=== PATIENT | female | born 1970 | race American Indian/Alaskan Native ===

== ENCOUNTER 2024-07-14 09:49 | Outpatient (REF) | payer MEDICAID, SELFPAY ==
--- NOTE | ~2024-07-14 | XR_ITS ---
EXAMINATION: XR KNEE RIGHT 3 VIEWS XR KNEE LEFT 3 VIEWS CLINICAL INFORMATION: Pain in right knee M25.561. M25.562 - Pain in left knee COMPARISON: None TECHNIQUE: AP, lateral and sunrise views of the bilateral knees, 6 images. FINDINGS: Right knee: Mild to moderate tricompartment arthrosis with medial compartment joint space narrowing, and osteophytosis predominantly involving the patellofemoral compartment. No acute fracture. Moderate superior and inferior patellar enthesopathic changes. Alignment is anatomic. No significant effusion or soft tissue swelling. Left knee: Mild to moderate tricompartment arthrosis with medial compartment joint space narrowing, and osteophytosis predominantly involving the patellofemoral compartment. No acute fracture. Moderate superior and inferior patellar enthesopathic changes. Alignment is anatomic. No significant effusion or soft tissue swelling. XR/XR knee LT 3V IMPRESSION: Mild to moderate tricompartment arthrosis of the bilateral knees. Electronically signed by: Genesis Hi DO 08/26/2024 02:14 PM PHUONG LERMA
--- NOTE | ~2024-07-14 | XR_ITS ---
EXAMINATION: XR KNEE RIGHT 3 VIEWS XR KNEE LEFT 3 VIEWS CLINICAL INFORMATION: Pain in right knee M25.561. M25.562 - Pain in left knee COMPARISON: None TECHNIQUE: AP, lateral and sunrise views of the bilateral knees, 6 images. FINDINGS: Right knee: Mild to moderate tricompartment arthrosis with medial compartment joint space narrowing, and osteophytosis predominantly involving the patellofemoral compartment. No acute fracture. Moderate superior and inferior patellar enthesopathic changes. Alignment is anatomic. No significant effusion or soft tissue swelling. Left knee: Mild to moderate tricompartment arthrosis with medial compartment joint space narrowing, and osteophytosis predominantly involving the patellofemoral compartment. No acute fracture. Moderate superior and inferior patellar enthesopathic changes. Alignment is anatomic. No significant effusion or soft tissue swelling. XR/XR knee RT 3V IMPRESSION: Mild to moderate tricompartment arthrosis of the bilateral knees. Electronically signed by: Genesis Hi DO 08/26/2024 01:14 PM PHUONG LERMA
== END 2024-07-14 09:50 | disposition home or self-care (01) ==
LOC: HO.HOSX 09:49
PROVIDERS: Visit Provider Orthopaedic Surgery
DX: S83.241A Other tear of medial meniscus, current injury, right knee, initial encounter (principal); M25.562 Pain in left knee; M25.561 Pain in right knee
CPT/HCPCS: 20610; 73562; 99202; J1010; J2003

== ENCOUNTER 2024-07-14 09:56 | Outpatient (AMB) | payer MEDICAID, SELFPAY ==
--- NOTE | 2024-07-14 10:05 | A.OFFVIS_ITS ---
Vital Signs 07/14/24 10:17 Height 5 ft Comment unkown Intake Visit Reasons: [employer]-B/L knee pain Intake Note: Ms. Ca presents with progressively worsening bilateral knee pains and giving way, right greater than left. The patient states that her left knee symptoms are tolerable to her at this point. She describes her right knee pain as sharp in nature. Most of the pain is along the medial aspect of her knee. Her pain and mechanical symptoms have gotten worse over the last few years in spite of continued non operative treatments. She has tried Tylenol, anti-inflammatory medicines and diclofenac topical gel which gave her only mild relief. She has done physical therapy exercises which aggravated her pain. Medication List - Last Reconciled 07/14/24 by Rock Rangel MD amlodipine 5 mg PO DAILY aripiprazole 15 mg PO DAILY carbamazepine ER 300 mg PO BID diclofenac sodium 1% 2 - 4 grams topical BID ferrous gluconate 324 mg PO DAILY hydrocortisone 1% appl topical BID Physical Exam Const Other: Well-nourished well-developed very friendly female awake alert and oriented x3 in no acute distress Neuro Other: Bilateral lower extremity examination shows good capillary refill, no skin lesions noted, normal sensation light touch Right knee examination shows a minimal effusion, minimal crepitus with range of motion, tenderness along her medial joint line, positive Oleg's test, no instability Extrem Other: Bilateral lower extremity examination shows good capillary refill, no skin lesions noted, normal sensation light touch Office Procedures AMB Joint Injection/Aspiration Joint Injection/Aspiration Primary Site: right knee Prep: site was prepped using aseptic technique Injected: 40 mg of, DepoMedrol and 1% plain lidocaine Procedure: The patient tolerated the procedure well Coding 52489 - Large joint Procedure code (CPT) selection complete Results Reviewed Results Reviewed: Standing full weight-bearing x-rays of the patient's bilateral knee show mild diffuse joint space narrowing, no acute bony abnormalities Assessment & Plan Assessment & Plan (1) Tear of medial meniscus of right knee: Code(s): S83.241A - Other tear of medial meniscus, current injury, right knee, initial encounter Category: Medical Plan Ms. Ca presents with progressively worsening right knee pain and mechanical symptoms most likely due to a tear of her medial meniscus. I had a lengthy discussion with the patient regarding the treatment options. The risks and benefits of a right knee cortisone injection were discussed at length with the patient. The patient wished to proceed. She tolerated the injection well. I will also send the patient for an MRI of her right knee to further evaluate the status of her medial meniscus. I will see her back once the MRI is completed. Feel free to call me at any time should questions regarding her orthopedic management arise. I spent 22 minutes in reviewing the patient's records and imaging studies, seeing the patient and documenting in the medical record. Orders: Orders XR knee LT 3V Today M25.562 - Pain in left knee XR knee RT 3V Today M25.561 - Pain in right knee MR knee RT wo con Today S83.241A - Other tear of medial meniscus, current injury, right knee, initial encounter AMB Joint Injection/Aspiration Today S83.241A - Other tear of medial meniscus, current injury, right knee, initial encounter Coding Level of Care Code New Pt Level 3 (29650) Complex EM visit Add On G2211 Diagnoses Tear of medial meniscus of right knee S83.241A CPT Codes Coding - 48962 Large joint: 78327 - Large joint ([id number])
== END 2024-07-14 10:34 | disposition home or self-care (01) ==
LOC: HO.HOS 09:56
PROVIDERS: PCP Physician Assistant; Visit Provider Orthopaedic Surgery
DX: S83.241A Other tear of medial meniscus, current injury, right knee, initial encounter (principal)
CPT/HCPCS: 20610; 99203

== ENCOUNTER 2024-08-25 10:45 | Outpatient (REF) | payer MEDICAID, SELFPAY ==
--- NOTE | ~2024-08-25 | MR_ITS ---
EXAMINATION: XR KNEE RIGHT 3 VIEWS XR KNEE LEFT 3 VIEWS CLINICAL INFORMATION: Pain in right knee M25.561. M25.562 - Pain in left knee COMPARISON: None TECHNIQUE: AP, lateral and sunrise views of the bilateral knees, 6 images. FINDINGS: Right knee: Mild to moderate tricompartment arthrosis with medial compartment joint space narrowing, and osteophytosis predominantly involving the patellofemoral compartment. No acute fracture. Moderate superior and inferior patellar enthesopathic changes. Alignment is anatomic. No significant effusion or soft tissue swelling. Left knee: Mild to moderate tricompartment arthrosis with medial compartment joint space narrowing, and osteophytosis predominantly involving the patellofemoral compartment. No acute fracture. Moderate superior and inferior patellar enthesopathic changes. Alignment is anatomic. No significant effusion or soft tissue swelling. MR/MR knee RT wo con IMPRESSION: Mild to moderate tricompartment arthrosis of the bilateral knees. Electronically signed by: Genesis Hi DO 08/26/2024 01:14 PM PHUONG LERMA
== END 2024-08-25 10:46 | disposition home or self-care (01) ==
LOC: HO.MRI 10:45
PROVIDERS: PCP Physician Assistant; Visit Provider Orthopaedic Surgery
DX: S83.241A Other tear of medial meniscus, current injury, right knee, initial encounter (principal)
CPT/HCPCS: 73721

== ENCOUNTER → 2024-09-29 13:18 | Outpatient (BNVA) | payer MEDICAID, SELFPAY | PROVIDERS: PCP Physician Assistant; Visit Provider Orthopaedic Surgery | DX: M17.11 Unilateral primary osteoarthritis, right knee (principal) | CPT/HCPCS: 99212 ==

== ENCOUNTER 2024-09-29 13:20 | Outpatient (AMB) | payer MEDICAID, SELFPAY ==
--- NOTE | 2024-09-29 13:21 | MHC.OFFVIS ---
Vital Signs 09/29/24 13:22 Height 5 ft Weight 189 lb 4 oz BMI 37.0 Intake Visit Reasons: OV-Right knee MRI review Intake Note: Danielle is a 53 year old female who presents with complaints of right knee pain. The patient describes her pain as sharp in nature. Her pain has gotten worse over the last year in spite of continued non operative treatments. Most of the pain is along the medial aspect of her knee. She did have a cortisone injection given into her right knee at her last visit. She got minimal relief from that injection. The patient states that her right knee ?hurts every day?. She has failed the last 3 months of conservative treatment which has consisted of Tylenol, diclofenac gel, physical therapy exercises and cortisone injection therapy. The patient states that her right knee pain is now interfering with her activities of daily living and her ability to sleep well through the night. She wishes to hold off on surgery if at all possible. Allergies No Known Allergies Allergy (Verified 09/29/24 13:24) Medication List - Last Reconciled 09/29/24 by Rock Rangel MD amlodipine 5 mg PO DAILY aripiprazole 15 mg PO DAILY carbamazepine ER 300 mg PO BID diclofenac sodium 1% 2 - 4 grams topical BID ferrous gluconate 324 mg PO DAILY hydrocortisone 1% appl topical BID PFSH Social History (Updated 09/29/24 @ 13:25 by COURTNEY Norton) Current occupational status: disabled Current occupation: rt handed Physical Exam Vital Signs: BMI result Body Mass Index 37.0 Const Other: Well-nourished well-developed very friendly female awake alert and oriented x3 in no acute distress Extrem Other: Bilateral lower extremity examination shows good capillary refill, no skin lesions noted, normal sensation light touch Right knee examination shows a minimal effusion, mild crepitus with range of motion, no joint line tenderness, negative McMurrys test Results Reviewed Results Reviewed: MRI of the patient's right knee shows mild to moderate diffuse degenerative changes, no acute bony abnormalities Assessment & Plan Assessment & Plan (1) Osteoarthritis of right knee: Code(s): M17.11 - Unilateral primary osteoarthritis, right knee Category: Medical Plan Ms. Ca presents with right knee pain due to osteoarthritis. I had a lengthy discussion with the patient regarding the treatment options. She wishes to hold off on surgery for as long as possible. I agree with this plan. She has not gotten good relief from cortisone injections in the past. Thus, I will see whether or not her insurance company will cover a viscosupplementation injection. I will see her back once the injection is available. Feel free to call me at any time should questions regarding her orthopedic management arise. I spent 20 minutes in reviewing the patient's records and imaging studies, seeing the patient and documenting in the medical record. Coding Level of Care Code Est Pt Level 3 (24151) Complex EM visit Add On G2211 Diagnoses Osteoarthritis of right knee M17.11
[2024-09-29 13:22] VITALS: BMI 37.0
== END 2024-09-29 13:37 | disposition home or self-care (01) ==
PROVIDERS: PCP Physician Assistant; Visit Provider Orthopaedic Surgery
DX: M17.11 Unilateral primary osteoarthritis, right knee (principal)
CPT/HCPCS: 99213

== ENCOUNTER 2024-11-24 12:50 | Outpatient (AMB) | payer MEDICAID, SELFPAY ==
[2024-11-24 12:52] VITALS: BMI 36.9
--- NOTE | 2024-11-24 12:52 | A.OFFVIS_ITS ---
Vital Signs 11/24/24 12:52 Height 5 ft Weight 189 lb BMI 36.9 Intake Visit Reasons: right knee pain Intake Note: Danielle is a 53 year old female who presents with complaints of progressively worsening right knee pain. She describes her pain as sharp in nature. Her pain has gotten worse over the last year in spite of continued non operative treatments. She has failed the last 3 months of conservative treatment. She has tried Tylenol and anti-inflammatory medicines as well as topical diclofenac which gave her minimal relief. She wishes to hold off on surgery if at all possible. She has had cortisone injections which gave her minimal relief. Allergies No Known Allergies Allergy (Verified 11/24/24 12:59) Medication List - Last Reconciled 11/24/24 by Rock Rangel MD amlodipine 5 mg PO DAILY aripiprazole 15 mg PO DAILY carbamazepine ER 300 mg PO BID diclofenac sodium 1% 2 - 4 grams topical BID ferrous gluconate 324 mg PO DAILY hydrocortisone 1% appl topical BID PFSH Social History (Updated 09/29/24 @ 13:25 by COURTNEY Norton) Current occupational status: disabled Current occupation: rt handed Physical Exam Vital Signs: BMI result Body Mass Index 36.9 Const Other: Well-nourished well-developed very friendly female awake alert and oriented x3 in no acute distress Extrem Other: Bilateral lower extremity examination shows good capillary refill, no skin lesions noted, normal sensation light touch right knee examination shows a minimal effusion, palpable crepitus with range of motion, pain with range of motion, no instability Office Procedures AMB Joint Injection/Aspiration Joint Injection/Aspiration Primary Site: right knee Prep: site was prepped using aseptic technique Injected: 20 mg of ( Euflexxa viscosupplementation) and 1% plain lidocaine Procedure: The patient tolerated the procedure well Coding 00583 - Large joint Procedure code (CPT) selection complete Results Reviewed Results Reviewed: x-rays of the patient's right knee taken previously show joint space narrowing, subchondral sclerosis, no acute bony abnormalities Assessment & Plan Assessment & Plan (1) Osteoarthritis of right knee: Code(s): M17.11 - Unilateral primary osteoarthritis, right knee Category: Medical Plan Ms. Ca Presents with progressively worsening right knee pain due to osteoarthritis. The risks and benefits of a series of Euflexxa viscosuppleme ntation injections were discussed at length with the patient. The patient wished to proceed. She tolerated the 1st injection well. She will continue with her home exercise program. She will follow up next week as scheduled. Feel free to call me at any time should questions regarding her orthopedic management arise. I spent 20 minutes in reviewing the patient's records and imaging studies, s eeing the patient and documenting in the medical record. Orders: Orders AMB Joint Injection/Aspiration Today M17.11 - Unilateral primary osteoarthritis, right knee Coding Level of Care Code Est Pt Level 3 (44302) Complex EM visit Add On G2211 Diagnoses Osteoarthritis of right knee M17.11 CPT Codes Coding - 91294 Large joint: 70938 - Large joint ([id number])
--- OUTSIDE RECORDS SUMMARY | 2024-11-24 16:10 | XMS_ITS | Encounter Summary ---
Author Organization [facility] Address [address] [place] [address] Care Team Providers Care Benefit Authorizer Name Role Phone Shantal Nieves PA-C Primary Care Provider [phone] Encounter Details Date Type Department Care Team (Late st Contact Info) Description 02/18/2022 Dental Interim Note [facility] [address] [place] [phone] Adair Denton DDS [address] [place] [address] Social History Tobacco Use Types Packs/Day Years Used Date Smoking Tobacco: Never Smokeless Tobacco: Never Alcohol Use Standard Drinks/Week Comments No 0 (1 standard drink = 0.6 oz pur e alcohol) Social Connections Answer Date Recorded Social Connections and Isolation 1 05/08/2021 Financial Resource Strain Answer Date R ecorded Financial Resource Strain 1 2020 Stress Answer Date Recorded Stress 1 05/08/2021 Physical Activity Answer Date Recorded Physical Activity 0 05/07/2019 Food Insecurity Answer Date Recorded Food 1 05/08/2021 Transportation Needs Answer Date Record ed Transportation 1 05/08/2021 Housing Stability Answer Date Recorded Housing 1 05/08/2021 Safety and Environment Answer Date Dhiraj rded Safety 1 05/08/2021 Utilities Answer Date Recorded Utilities 1 05/08/2021 Employment Answer Date Recorded Stress 0 12/02/2021 Comments No Sex and Gender Information Value Date Recorded Sex Assigned at Female 11/27/2017 8:34 AM PDT Legal Sex Female 11:36 AM PDT Gender Identity Female 11/27/2017 8:34 AM PDT Sexual Orientation Straight 11/27/2017 8: 34 AM PDT COVID-19 Exposure Response Date Recorded In the last 10 days, have yo u been in contact with someone who was confirmed or suspected to have Coronavirus/COVID-19? No / Unsure 02/18/2022 10:09 AM EDT documented as of this encounter Plan of Treatment Upcoming Encounters Date Type Department Care Team (Late st Contact Info) Description 12/08/2024 1:00 PM EDT Office Visit [address] [phone] Shantal Nieves PA-C [address] [place] [address] 02/23/2025 10:20 AM EDT Office Visit [address] [phone] [place] [phone] 06/01/2025 10:20 AM EDT Office Visit [address] [phone] [place] [phone] Scheduled Orders Name Type Priority Associated Diagnoses Order Schedule 7,14,10 MAXILLARY PARTIAL DENTURE - RESIN BASE Dental Procedures Routine 1 Occurrences starting 10/22/2023 26,25,24,23,22,27 MANDIBULAR PARTIAL DENTURE - RESIN BASE Dental Procedures Routine 1 Occurrences starting 10/22/2023 documented as of this encounter Procedures Procedure Name Priority Date/Time Associated Diagnosis Comments 8 D COMPOSITE - WISDOM (NON BILLABLE) Routine 02/18/2022 12:00 AM EDT 6 F COMPOSITE - WISDOM (NON BILLABLE) Routine 02/18/2022 12:00 AM EDT 30 O AMALGAM - WISDOM (NON BILLABLE) Routine 02/18/2022 12:00 AM EDT 18 O AMALGAM - WISDOM (NON BILLABLE) Routine 02/18/2022 12:00 AM EDT 15 O AMALGAM - WISDOM (NON BILLABLE) Routine 02/18/2022 12:00 AM EDT 4 O AMALGAM - WISDOM (NON BILLABLE) Routine 02/18/2022 12:00 AM EDT 3 O AMALGAM - WISDOM (NON BILLABLE) Routine 02/18/2022 12:00 AM EDT 2 DO AMALGAM - WISDOM (NON BILLABLE) Routine 02/18/2022 12:00 AM EDT 1 O AMALGAM - WISDOM (NON BILLABLE) Routine 02/18/2022 12:00 AM EDT documented in this encounter Visit Diagnoses Not on filedocumented in this encounter Care Teams Benefit Authorizer Relationship Specialty Start Date End Date Shantal Nieves PA-C [address] [place] [address] PCP - General [facility]ICINE[facility] 03/07/22 documented as of this encounter
--- OUTSIDE RECORDS SUMMARY | 2024-11-24 16:10 | XMS_ITS | Encounter Summary ---
Author Organization [facility] Address [address] [place] [address] Care Team Providers Care Traffic Recorder Name Role Phone Shantal Nieves PA-C Primary Care Provider + [phone] Reason for Visit * Reason Comments Dental Hygiene/ Preventive Recall Encounter Details Date Type Department Care Team ([facility] st Contact Info) Description 11/24/2024 10:20 AM EDT Office Visit [facility] [address] [place] [phone] Gia Fernandez [address] [place] [address] Encounter for dental examination (Primary Dx) Social History Tobacco Use Types Packs/Day Years Used Date Smoking Tobacco: Never Smokeless Tobacco: Never Alcohol Use Standard Drinks/Week Comments No 0 (1 standard drink = 0.6 oz pur e alcohol) Social Connections Answer Date Recorded Connectedness 1 02/25/2024 Financial Resource Strain Answer Date R ecorded Financial Resource Strain 1 2023 Stress Answer Date Recorded Stress 1 02/25/2024 Physical Activity Answer Date Recorded Physical Activity 0 05/07/2019 Food Insecurity Answer Date Recorded Food 1 02/25/2024 Transportation Needs Answer Date Record ed Transportation 1 02/25/2024 Housing Stability Answer Date Recorded Housing 1 02/25/2024 Safety and Environment Answer Date Dhiraj rded Safety 1 02/25/2024 Utilities Answer Date Recorded Utilities 1 02/25/2024 Employment Answer Date Recorded Stress 0 12/02/2021 Comments No Sex and Gender Information Value Date Recorded Sex Assigned at Female 11/27/2017 8:34 AM PDT Legal Sex Female 11:36 AM PDT Gender Identity Female 11/27/2017 8:34 AM PDT Sexual Orientation Straight 11/27/2017 8: 34 AM PDT documented as of this encounter Last Filed Vital Signs Vital Sign Reading Time Taken Comments Blood Pressure 123/75 11/24/2024 2:46 PM EDT Pulse 55 11/24/2024 2:46 PM EDT Temperature - - Respiratory Rate - - Oxygen Saturation - - Inhaled Oxygen Concentration - - Weight - - Height - - Body Mass Index - - documented in this encounter Progress Notes * Gia Fernandez - 11/24/2024 2:43 PM EDT Prophy Subjective Danielle Ca, 53 year old female, presents alone for prophy. Insurance Underwriting Assistant: No No chief complaint on file. Objective RMHx: Yes Vitals: There were no vitals filed for this visit. Assessment EOE/IOE/Oral Cancer Screen: WNL Oral Hygiene: Fair Home Care: Toothbrush 1 x per day, Floss 0 x per day Fluoride exposure: toothpaste Plaque: Generalized Moderate Calculus: Generalized Moderate Gingival Description: Erythematous Inflammation: Generalized Moderate Recession: Generalized Moderate Bone Loss: Generalized Moderate Staining: None PSR: Yes Periodontal Screening Full Perio Charting completed: Yes Dx: Z01.20 Encounter for dental examination (primary encounter diagnosis) DH Dx Details: Recalll Plan Recall Informed Consent/PARQ (Procedure, Alternatives, Risks, Questions): Patient confirms informed consent using PARQ. Dental procedures in this visit D9450 - CASE PRESENTATION SUBS DTL & EXTENSIVE TX PLN (Completed) Service provider: Gia Fernandez Billlydia provider: Zaira Pickett DDS TX993 - ORAL CANCER SCREENING (Completed) Service provider: Gia Fernandez Billlydia provider: Zaira Pickett DDS D1330 - ORAL HYGIENE INSTRUCTIONS (Completed) Service provider: Gia Fernandez Billlydia provider: Zaira Pickett DDS D1310 - NUTRITIONAL COUNSELING CONTROL OF DENTAL DISEASE (Completed) Service provider: Gia Fernandez Billlydia provider: Zaira Pickett DDS D0603 - CARIES RISK ASSESSMENT & DOC FINDING HIGH RISK (Completed) Service provider: Gia Fernandez Billing provider: Zaira Pickett DDS D0274 - BITEWINGS - FOUR RADIOGRAPHIC IMAGES (Completed) Service provider: Gia Fernandez Billing provider: Zaira Pickett DDS D0180 - COMP PERIODONTAL EVALUATION - NEW/EST PATIENT (Completed) Service provider: Gia Fernandez Billing provider: Zaira Pickett DDS D1110 - PROPHYLAXIS - ADULT (Completed) Service provider: Gia Fernandez Billing provider: Zaira Pickett DDS D9993 - DENTAL CASE MANAGEMENT - MOTIVATIONAL INTV (Completed) Service provider: Gia Fernandez Billing provider: Zaira Pickett DDS D0120 - PERIODIC ORAL EVALUATION ESTABLISHED PATIENT (Completed) Service provider: Gia Fernandez Billing provider: VARUN Villela completed with ultrasonic traffic signal technician OHI & Nutrition counseling provided, discussed: Gingivitis Post-Op Information Given: verbal Referral: No orders of the following type(s) were placed in this encounter: Referral. Rx: No orders of the defined types were placed in this encounter. Behavior: Excellent NV: Recall documented in this encounter Plan of Treatment Upcoming Encounters Date Type Department Care Team (Late st Contact Info) Description 12/08/2024 1:00 PM EDT Office Visit [address] [phone] Shantal Nieves PA-C [address] [place] [address] 02/23/2025 10:20 AM EDT Office Visit [address] [phone] [address] [address] 06/01/2025 10:20 AM EDT Office Visit [address] [phone] [address] [address] Scheduled Orders Name Type Priority Associated Diagnoses Order Schedule INTRAORAL - COMP SERIES OF RADIOGRAPHIC IMAGES Dental Procedures Routine 1 Occurren tameka starting 11/24/2024 PANORAMIC RADIOGRAPHIC IMAGE Dental Procedures Routine 1 Occurrenc es starting 11/24/2024 documented as of this encounter Procedures Procedure Name Priority Date/Time Associated Diagnosis Comments ORAL CANCER SCREENING Routine 11/24/2024 10:20 AM EDT Encounter for dental examination DENTAL CASE MANAGEMENT - MOTIVATIONAL INTV Routine 11/24/2024 10:20 AM EDT Encounter for dental examination CARIES RISK ASSESSMENT & DOC FINDING HIGH RISK Routine 11/24/2024 10:20 AM EDT Encounter for dental examination CASE PRESENTATION SUBS DTL & EXTENSIVE TX PLN Routine 11/24/2024 10:20 AM EDT Encounter for dental examination COMP PERIODONTAL EVALUATION - NEW/EST PATIENT Routine 11/24/2024 10:20 AM EDT Encounter for dental examination ORAL HYGIENE INSTRUCTIONS Routine 11/24/2024 10:20 AM EDT Encounter for dental examination NUTRITIONAL COUNSELING CONTROL OF DENTAL DISEASE Routine 11/24/2024 10:20 AM EDT Encounter for dental examination PROPHYLAXIS - ADULT Routine 11/24/2024 1 0:20 AM EDT Encounter for dental examination BITEWINGS - FOUR RADIOGRAPHIC IMAGES Routine 11/24/2024 10:20 AM EDT Encounter for dental examination PERIODIC ORAL EVALUATION ESTABLISHED PATIENT Routine 11/24/2024 10:20 AM EDT Encounter for dental examination documented in this encounter Visit Diagnoses Diagnosis Encounter for dental examination- Primary Dental examination documented in this encounter Additional Health Concerns Assessment Noted Time PHQ-9 Depression Total Score: 0 02/25/20 24 1:40 PM PDT documented as of this encounter Care Teams Traffic Recorder Relationship Specialty Start Date End Date Shantal Nieves PA-C [address] [place] [address] PCP - General [facility]ICINE[facility]BAN 03/07/22 documented as of this encounter
--- OUTSIDE RECORDS SUMMARY | 2024-11-24 16:10 | XMS_ITS | Clinical Summary ---
Author Organization [facility] Address [address] [place] [address] Care Team Providers Care Modern And Contemporary Art Curator Name Role Phone Shantal Nieves PA-C Primary Care Provider Source Comments PLEASE NOTE, if this patient is a minor, it may be UNLAWFUL to discuss sensitive information that is contained in these records (such as FAMILY PLANNING, MENTAL HEALTH or SUBSTANCE ABUSE) with the minor patient's parent or other person without the patient's specific authorization.[facility] Allergies No known active allergies Medications ARIPiprazole (ABILIFY) 15 mg tabletIndication s:Manic depression (HCC-CMS) Take 1 tablet by mouth once daily. 05/09/20 14 Active carBAMazepine (TEGRETOL) 200 mg tabletIndication s:Manic depression (HCC-CMS) Take 1 tablet by mouth 2 (two) times daily. 05/09/20 14 Active OLANZAPINE ORAL Take by mouth. Active ferrous sulfate 325 mg (65 mg iron) tabletIndication s:Iron deficiency anemia due to chronic blood loss TAKE 1 TABLET BY MOUTH EVERY DAY WITH BREAKFAST 30 Tablet 5 12/03/19 22 Active diclofenac sodium (VOLTAREN) 1 % gelIndications:C hronic pain of left knee Apply 2-4 g topically 2 (two) times daily 100 g 5 02/25/20 24 Active hydrocortisone 1 % creamIndications :Rash Apply topically 2 (two) times daily 30 g 05/31/20 24 Active amLODIPine (NORVASC) 5 mg tabletIndication s:Primary hypertension TAKE 1 TABLET BY MOUTH EVERY DAY 90 Tablet 1 10/26/19 25 Active amLODIPine (NORVASC) 5 mg tabletIndication s:Primary hypertension Take 1 Tablet by mouth once daily 90 Tablet 1 04/07/20 24 025 Discontinued Active Problems Problem Noted Date Diagnosed Date Primary osteoarthritis of left knee 04/26/2022 Overview (04/26/2022): 04/15/22 Xray trace OA and patellar spurs Class 2 obesity due to exces s calories with body mass index (BMI) of 37.0 to 37.9 in adult 04/15/2022 Well female exam with routine gynecological exam 11/02/2019 Screening breast examination 12/18/2017 Overview (12/18/2017): [facility]-Panfilo screening digital 12-16-17 IMPRESSION: No findings suspicious for malignancy. Please note, a negative imaging evaluation should never overrule a strongly suspicious finding on physical exam. In addition, the patient should be advised that tomosynthesis can be particularly helpful for breast cancer screening in patients with this breast density, both in increasing sensitivity for malignancy and in reducing callbacks. BI-RADS: Category 2: Benign BILATERAL RECOMMENDATION(S): Routine screening mammogram BILATERAL in 1 year. dysfunctional uterine bleeding 12/03/2017 Overview (12/03/2017): [facility]-US Pelvis 12-01-17 Normal pelvic ultrasound Onychomycosis of toenail 11/06/2016 Menorrhagia with irregular cycle 08/06/2016 History of normal mammogram 11/01/2014 Overview (11/01/2014): Done 10/20/2014 ASCUS with positive high risk HPV 10/26/2014 Pap smear for cervical cancer screening 09/19/19 15 Overview (10/25/2014): Gc,chlamydia- negetive Pap- ascus with positive hpv. Iron deficiency anemia 05/09/2014 HTN (hypertension) 08/10/2013 Bipolar depression (HCC-CMS) 08/10/2013 Overview (08/06/2016): Sees psychiatrist, at [facility] Dr. Oquendo. On meds. Mild mental retardation 08/10/2013 Overview (08/06/2016): Sees pyschiatrist. Went to special schooling. Graduated when she was 24yo. 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 Ms. Kc( [phone]) who sees her 3 time/ month. Resolved Problems Problem Noted Date Diagnosed Date Resolved Date Benign hypertension 01/22/2016 08/06/20 16 Encounters Date Type Department Care Team Description 11/24/2024 10:20 AM EDT Office Visit [facility] [address] [place] [phone] Gia Fernandez Encounter for dental examination (Primary Dx) 09/22/2024 9:40 AM EST Office Visit [address] [phone] Aishwarya Doe RN Onychomycosis (Primary Dx) 09/22/2024 Travel from Last 3 Months Immunizations Name Administration Dates Next Due Flu, Preservative Free 06/21/2018,05/15/2017 INFLUENZA, SEASONAL, INJECTABLE 08/06/2016,08/10 Family History Medical History Relation Name Comments Hypertension Mother Osteoarthritis Mother Relation Name Status Comments Father Alive Mother Alive Social History Tobacco Use Types Packs/Day Years Used Date Smoking Tobacco: Never Smokeless Tobacco: Never Tobacco Cessation:Counseling Given: Not Answered Alcohol Use Standard Drinks/Week Comments No 0 [...] Orientation Straight 11/27/2017 8: 34 AM PDT Last Filed Vital Signs Vital Sign Reading Time Taken Comments Blood Pressure 123/75 11/24/2024 2:46 PM EDT Pulse 55 11/24/2024 2:46 PM EDT Temperature 36.9 ??C (98.4 ??F) 05/31/2024 1:48 PM ED T Respiratory Rate 18 05/31/2024 1:48 PM EDT Oxygen Saturation 98% 05/31/2024 1:48 PM EDT Inhaled Oxygen Concentration - - Weight 88 kg (194 lb) 05/31/2024 1:48 PM EDT Height 149.9 cm (4' 11 ) 05/31/2024 1:48 PM EDT Body Mass Index 39.18 05/31/2024 1:48 PM EDT Plan of Treatment Upcoming Encounters Date Type Department Care Team (Late st Contact Info) Description 12/08/2024 1:00 PM EDT Office Visit [address] [phone] Shantal Nieves PA-C [address] [place] [address] 02/23/2025 10:20 AM EDT Office Visit [facility] [address] [place] [phone] Gia Fernandez [address] [place] [phone] 06/01/2025 10:20 AM EDT Office Visit [facility] [address] [place] [phone] [address]ia Fernandez [address] [place] [phone] Health Maintenance Due Date Last Done Comments Dental FMX/Pano 1972 HPV Screening 1972 Pap + HPV 1972 Imm-DTaP/Tdap/Td (1 - Tdap) 12/10/1991 Imm-Hepatitis B (1 of 3 - 19+ 3-dose series) 12/10/1991 CT Colonography 2017 Colonoscopy 2017 Fecal DNA 2017 Flexible Sigmoidoscopy 2017 Cervical Cancer Screening 02/25/2021 Pap Smear 02/25/2021 02/25/2018 (Yadi carias by Outside Provider), 09/21/2014 Imm-Zoster, Recombinant (1 of 2) 2022 Colorectal Cancer Screening 05/19/2023 FIT/gFOBT 05/19/2023 05/19/2022 Breast Cancer Screening (Mammogram) 05/07/2024 05/07/2022, 02/23/2020 Alcohol and Drug Screen 09/14/2024 02/25/20 24, 04/15/2022, 05/08/2021, Additional history exists Depression Annual Screen 09/14/2024 02/25/2024 [id number] ( season) 2024 Postponed from 05/15/2024 (Patient postponement) Annual Preventive Care Visit 02/24/2025 02/25/2024, 04/15/2022, 05/08/2021, Additional history exists Diabetes Screening 02/24/2025 02/25/2024, 0 04/23/2022, 05/08/2021, Additional history exists Lipid Screening 02/24/2025 02/25/2024, 04/14, 05/08/2021, Additional history exists Imm-Influenza (#1) 2025 06/21/2018, 0 05/15/2017, 08/06/2016, Additional history exists Postponed from 05/15/2024 (Follow up visit) Tobacco Screening 08/19/2025 11/24/2024 Dental BW 11/26/2025 11/24/2024, 0810/2023, 10/22/2023, Additional history exists Dental Examination 11/26/2025 11/24/2024, 0 05/05/2024, 10/22/2023, Additional history exists Dental Perio Charting 11/26/2025 11/24/2024, 023 Dental Prophy 11/26/2025 11/24/2024, 12/0 01/2024, 05/05/2024, Additional history exists HIV Screening Discontinued 10/18/2019 Hepatitis C Screening Completed 04/15/2022 Cervical Ablation/Cold-Knife Conization Discontinued Cervical Cryotherapy Discontinued Colposcopy Discontinued Endometrial Biopsy Discontinued Excision/Leep Discontinued HPV Genotyping Discontinued Vaginal Pap Discontinued Vulvoscopy Discontinued Procedures Procedure Name Priority Date/Time Associated Diagnosis Comments PERIODIC ORAL EVALUATION ESTABLISHED PATIENT Routine 11/24/2024 10:20 AM EDT Encounter for dental examination DENTAL CASE MANAGEMENT - MOTIVATIONAL INTV Routine 11/24/2024 10:20 AM EDT Encounter for dental examination PROPHYLAXIS - ADULT Routine 11/24/2024 1 0:20 AM EDT Encounter for dental examination COMP PERIODONTAL EVALUATION - NEW/EST PATIENT Routine 11/24/2024 10:20 AM EDT Encounter for dental examination BITEWINGS [...] AM EDT Encounter for dental examination ORAL CANCER SCREENING Routine 11/24/2024 10:20 AM EDT Encounter for dental examination CASE PRESENTATION SUBS DTL & EXTENSIVE TX PLN Routine 11/24/2024 10:20 AM EDT Encounter for dental examination REFERRAL SCANNED DOCUMENT 09/29/2024 3:00 AM EST COMPREHENSIVE METABOLIC PANEL Routine 02/25/2024 2:12 PM EDT Encounter for annual physical exam LIPID PANEL Routine 02/25/2024 2:12 PM EDT Encounter for annual physical exam FECAL GLOBIN BY IMMUNOCHEM (MEDICARE) Routine 05/19/2022 8:00 PM EDT Screening for colorectal cancer REFERRAL FOR MAMMOGRAM Routine 3:00 AM EDT Encounter for screening mammogram for malignant neoplasm of breast HEPATITIS C AB W/RFLX HCV RNA, QT, RT PCR Routine 04/15/2022 10:03 AM EDT Screening for viral disease ANTIBODY HIV-1&HIV-2 SINGLE RESULT Routine 10/18/2019 4:38 PM EST Encounter for general adult medical examination w/o abnormal findings from Last 3 Months or Most Recently Relevant to Health Maintenance Results * REFERRAL SCANNED DOCUMENT (09/29/2024 3:00 AM EST) 09/29/2024 3:00 AM EST us Shantal Nieves PA-C SCAN REFERRAL Final Result * LIPID PANEL (02/25/2024 2:12 PM EDT) CHOLESTEROL, TOTAL 154 <200 mg/dL [employer] [facility] [employer] [facility] HDL CHOLESTEROL 57 > OR = 50 mg/dL [employer] [facility] TRIGLYCERIDES 104 <150 mg/dL [employer] [facility] LDL-CHOLESTEROL 78 99 mg/dL (calc) [employer] [facility] Comment: Reference range: <100 Desirable range <100 mg/dL for primary prevention; ?? <70 mg/dL for patients with CHD or diabetic patients with > or = 2 CHD risk factors. LDL-C is now calculated using the Axel-Ventura calculation, which is a validated novel method providing better accuracy than the Friedewald equation in the estimation of LDL-C. Axel SS et al. HIRAM. 2013;310(19): 9684-3157 (http://education.ThoughtBox/faq/YQS350) CHOL/HDLC RATIO 2.7 <5.0 (calc) [facility] [employer] [facility] NON-HDL CHOLESTEROL 97 <130 mg/dL (calc) [employer] [facility] Comment: For patients with diabetes plus 1 major ASCVD risk factor, treating to a non-HDL-C goal of <100 mg/dL (LDL-C of <70 mg/dL) is considered a therapeutic option. Blood Blood / Unknown 02/25/2024 2 :12 PM EDT 02/25/2024 2:13 PM EDT us Shantal Nieves PA-C LAB - BLOOD DRAW Final Resul t [employer] [facility] [address] [address], [employer] [facility] [address] [place] [address] * COMPREHENSIVE METABOLIC PANEL (02/25/2024 2:12 PM EDT) GLUCOSE 84 65 - 99 mg/dL [employer] [facility] Comment: ?Fasting reference interval UREA NITROGEN (BUN) 18 7 - 25 mg/dL [employer] [facility] CREATININE (blood) 0.80 0.50 - 1.03 mg/dL [employer] [facility] EGFR 89 > OR = 60 mL/min/1. 73m2 [employer] [facility] BUN/CREATININE RATIO SEE NOTE: [employer] [facility] Comment: ?? Not Reported: BUN and Creatinine are within ?? reference range. ? SODIUM 141 135 - 146 mmol/L [employer] [facility] POTASSIUM 4.1 3.5 - 5.3 mmol/L [employer] [facility] CHLORIDE 105 98 - 110 mmol/L [employer] [facility] CARBON DIOXIDE 29 20 - 32 mmol/L [employer] [facility] CALCIUM 9.3 8.6 - 10.4 mg/dL [employer] [facility] PROTEIN, TOTAL 7.1 6.1 - 8.1 g/dL [employer] [facility] ALBUMIN 4.2 3.6 - 5.1 g/dL [employer] [facility] GLOBULIN 2.9 1.9 - 3.7 g/dL (calc) [employer] [facility] ALBUMIN/GLOBULI N RATIO 1.4 1.0 - 2.5 (calc) [employer] [facility] BILIRUBIN, TOTAL 0.3 0.2 - 1.2 mg/dL [employer] [facility] ALKALINE PHOSPHATASE 62 37 - 153 U/L [employer] [facility] AST 16 10 - 35 U/L [employer] [facility] ALT 12 6 - 29 U/L [employer] [facility] Blood Blood / Unknown 02/25/2024 2 :12 PM EDT 02/25/2024 2:13 PM EDT us Shantal Nieves PA-C LAB - BLOOD DRAW Edited Resu lt - Final [employer] [facility] [address] [address], [employer] [facility] [address] [place] [address] * FECAL GLOBIN BY IMMUNOCHEM (MEDICARE) (05/19/2022 8:00 PM EDT) FECAL GLOBIN BY IMMUNOCHEMISTRY See Note [employer] Comment: ??FECAL GLOBIN BY IMMUNOCHEMISTRY ?Micro Number: ?[id number] ??Test Status: ? Final ??Specimen Source: ?? Insure (tm) fobt test card ??Specimen Quality: ??Adequate ??Fecal Globin: ?Not Detected Stool Stool specimen / Unknown 05/19/2022 8:00 PM EDT 05/26/2022 4:40 AM EDT us Shantal Nieves PA-C LAB - NO BLOOD DRAW Final Re sult [employer] [facility] [address] [address], [facility] [address] [address] * REFERRAL FOR MAMMOGRAM (05/07/2022 3:00 AM EDT) 05/07/2022 3:00 AM EDT us Shantal Nieves PA-C IMG RFL MAMMO Edited Resul t - Final * HEPATITIS C AB W/RFLX HCV RNA, QT, RT PCR (04/15/2022 10:03 AM EDT) HEPATITIS C ANTIBODY NON-REACT SILVIA NON-REACT SILVIA [employer] SIGNAL TO CUT-OFF 0.18 <1.00 [employer] Comment: HCV antibody was non-reactive. There is no laboratory evidence of HCV infection. In most cases, no further action is required. However, if recent HCV exposure is suspected, a test for HCV RNA (test code 23880) is suggested. For additional information please refer to http://education.Observable Networks/faq/XLH78m9 (This link is being provided for informational/ educational purposes only.) Blood Blood / Unknown 04/15/2022 1 0:03 AM EDT 04/15/2022 10:03 AM EDT Narrative [facility] - 04/16/2022 3:24 AM EDT FASTING:YES DIFFICULT DRAW. PATIENT ADVISED TO RETURN FOR COLLECTION. Shantal Nieves PA-C LAB - BLOOD DRAW Final Resul t [facility] [address] [address], [facility] [address] [address] * HIV-1 & HIV-2 ANTIBODIES (10/18/2019 4:38 PM EST) [facility] HIV 1 AND 2 ANTIBODY SCREEN NEGATIVE NEGATIVE [employer] [facility] Comment: This assay is a 4th generation assay allowing for earlier detection of HIV infection by detecting the presence of the HIV-1 p24 antigen as well as the traditional antibodies to HIV type 1 (including group O) and type 2. ??Use of a 4th generation assay is the current CDC recommendation for HIV screening. Blood specimen (specimen) Blood / Unknown 10/18/2019 4:38 PM EST 10/18/2019 4:39 PM EST Narrative [facility] - 10/18/2019 8:12 PM EST [employer], a member of [address] [address] Coat Finisher - Elisa Blanton MD PT ID [id number] ORD# [id number] [facility]ik[facility] LIN LAB - BLOOD DRAW Final Resu lt Performing Organization Address City/[facility]/ZIP Co de Phone Number [facility] [employer] [address], from Last 3 Months or Most Recently Relevant to Health Maintenance Insurance [place] [address] [employer] [facility] [place] [place] [address] Care Teams Modern And Contemporary Art Curator Relationship Specialty Start Date End Date Shantal Nieves PA-C [address] [place] [address] PCP - General FAMILY MEDICINEURBAN 03/07/22
== END 2024-11-24 13:16 | disposition home or self-care (01) ==
LOC: HO.HOS 12:51
PROVIDERS: PCP Physician Assistant; Visit Provider Orthopaedic Surgery
DX: M17.11 Unilateral primary osteoarthritis, right knee (principal)
CPT/HCPCS: 20610; 99213

== ENCOUNTER → 2024-11-24 12:50 | Outpatient (BNVA) | payer MEDICAID, SELFPAY | PROVIDERS: PCP Physician Assistant; Visit Provider Orthopaedic Surgery | DX: M17.11 Unilateral primary osteoarthritis, right knee (principal) | CPT/HCPCS: 20610; 99212; J2003; J7323 ==

== ENCOUNTER 2024-12-01 11:01 | Outpatient (AMB) | payer MEDICAID, SELFPAY ==
--- NOTE | 2024-12-01 11:05 | A.OFFVIS_ITS ---
Vital Signs 12/01/24 11:09 Height 5 ft Weight 189 lb BMI 36.9 Intake Visit Reasons: Inj- Right knee Euflexxa #2 Intake Note: Danielle is a 53 year old female who presents today for a second dose of Euflexxa gel injection on the right knee. Patient reports the first injection provided good relief. She denies any fevers or chills. Allergies No Known Allergies Allergy (Verified 12/01/24 11:09) Medication List - Last Reconciled 12/01/24 by Rock Rangel MD amlodipine 5 mg PO DAILY aripiprazole 15 mg PO DAILY carbamazepine ER 300 mg PO BID diclofenac sodium 1% 2 - 4 grams topical BID ferrous gluconate 324 mg PO DAILY hydrocortisone 1% appl topical BID PFSH Social History (Updated 09/29/24 @ 13:25 by COURTNEY Norton) Current occupational status: disabled Current occupation: rt handed Physical Exam Vital Signs: BMI result Body Mass Index 36.9 Extrem Other: Right knee examination shows a minimal effusion, palpable crepitus with range of motion, pain with range of motion, no instability Office Procedures AMB Joint Injection/Aspiration Joint Injection/Aspiration Primary Site: right knee Prep: site was prepped using aseptic technique Injected: 20 mg of (Euflexxa viscosupplementation) and 1% plain lidocaine Procedure: The patient tolerated the procedure well Coding 89667 - Large joint Procedure code (CPT) selection complete Results Reviewed Results Reviewed: X-rays of the patient's right knee taken previously show joint space narrowing, subchondral sclerosis, no acute bony abnormalities Assessment & Plan Assessment & Plan (1) Osteoarthritis of right knee: Code(s): M17.11 - Unilateral primary osteoarthritis, right knee Category: Medical Plan Ms. Ca presents with right knee pain due to osteoarthritis. The risks and benefits of a 2nd Euflexxa injection were discussed at length with the patient. The patient wished to proceed. She tolerated the injection well. She will continue with her home exercise program. She will follow up next week as scheduled. Feel free to call me at any time should questions regarding her ort hopedic management arise. Orders: Orders AMB Joint Injection/Aspiration Today M17.11 - Unilateral primary osteoarthritis, right knee Coding Level of Care Code Procedure Only Diagnoses Osteoarthritis of right knee M17.11 CPT Codes Coding - 97249 Large joint: 22575 - Large joint ([id number])
[2024-12-01 11:09] VITALS: BMI 36.9
--- OUTSIDE RECORDS SUMMARY | 2024-12-01 12:59 | XMS_ITS | Encounter Summary ---
Author Organization [facility] Address [address] [place] [address] Care Team Providers Care Senior Policy Associate Name Role Phone Shantal Nieves PA-C Primary Care Provider + [phone] Reason for Visit * Reason Comments Dental Hygiene/ Preventive Recall Encounter Details Date Type Department Care Team ([facility] st Contact Info) Description 11/24/2024 10:20 AM EDT Office Visit [facility] [address] [place] [phone] Gia Fernandez [address] [place] [address] Encounter for dental examination (Primary Dx) Social [...] year old female, presents alone for prophy. [employer] Architect: No No chief complaint on file. Objective [...] Billing provider: VARUN Villela completed with ultrasonic paint roller covermaker OHI & Nutrition counseling provided, discussed: Gingivitis [...] Description 12/08/2024 1:00 PM EDT Office Visit [address] [phone] Shantal Nieves PA-C [address] [place] [address] 12/29/2024 11:20 AM EDT Office Visit [address] [phone] Shantal Nieves PA-C [address] [place] [address] 02/23/2025 10:20 AM EDT Office Visit [facility] [address] [place] [address] Gia Fernandez [address] [place] [phone] 06/01/2025 10:20 AM EDT Office Visit [facility] [address] [place] [phone] Gia Fernandez [address] [place] [address] Scheduled Orders Name Type Priority Associated Diagnoses [...] documented as of this encounter Care Teams Senior Policy Associate Relationship Specialty Start Date End Date Shantal Nieves PA-C [address] [place] [address] PCP - General FAMILY MEDICINEURBAN 03/07/22 documented as of this encounter
--- OUTSIDE RECORDS SUMMARY | 2024-12-01 13:00 | XMS_ITS | Clinical Summary ---
Author Organization [facility] Address [address] [place] [address] Care Team Providers Care Television Writer Name Role Phone Shantal Nieves PA-C Primary [...] active allergies Medications ARIPiprazole (ABILIFY) 15 mg tabletIndications :Manic depression (HCC-CMS) Take 1 tablet by mouth once daily. 4 Active carBAMazepine (TEGRETOL) 200 mg tabletIndications :Manic depression (HCC-CMS) Take 1 tablet by mouth 2 (two) times daily. 4 Active OLANZAPINE ORAL Take by mouth. Active ferrous sulfate 325 mg (65 mg iron) tabletIndications :Iron deficiency anemia due to chronic blood loss TAKE 1 TABLET BY MOUTH EVERY DAY WITH BREAKFAST 30 Tablet 5 2 Active diclofenac sodium (VOLTAREN) 1 % gelIndications:Ch ronic pain of left knee Apply 2-4 g topically 2 (two) times daily 100 g 5 4 Active hydrocortisone 1 % creamIndications: Rash Apply topically 2 (two) times daily 30 g 4 Active amLODIPine (NORVASC) 5 mg tabletIndications :Primary hypertension TAKE 1 TABLET BY MOUTH EVERY DAY 90 Tablet 1 5 Active Active Problems Problem Noted Date Diagnosed Date Primary osteoarthritis of left knee 04/26/2022 Overview (04/26/2022): 04/15/22 Xray trace OA and patellar spurs Class 2 obesity due to exces s calories with body mass index (BMI) of 37.0 to 37.9 in adult 04/15/2022 Well female exam with routine gynecological exam 11/02/2019 Screening breast examination 12/18/2017 Overview (12/18/2017): [facility]Panfilo screening digital 12-16-17 IMPRESSION: No findings suspicious [...] year. dysfunctional uterine bleeding 12/03/2017 Overview (12/03/2017): [facility]-US Pelvis 12-01-17 Normal pelvic ultrasound Onychomycosis of toenail 11/06/2016 Menorrhagia with irregular cycle 08/06/2016 History of normal mammogram 11/01/2014 Overview (11/01/2014): Done 10/20/2014 ASCUS with positive high risk HPV 10/26/2014 Pap smear for cervical cancer screening 09/19/19 15 Overview (10/25/2014): Gc,chlamydia- negetive Pap- ascus with positive hpv. Iron deficiency anemia 05/09/2014 HTN (hypertension) 08/10/2013 Bipolar depression (HCC-CMS) 08/10/2013 Overview (08/06/2016): [facility] psychiatrist, at [facility]. Dr. Oquendo. On meds. 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 Went to special schooling. Graduated when she was 24yo. 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 Ms. Kc( [phone]) who sees her 3 time/ month. Resolved Problems Problem Noted Date Diagnosed Date Resolved Date Benign hypertension 01/22/2016 08/06/20 16 Encounters Date Type Department Care Team Description 11/24/2024 10:20 AM EDT Office Visit [address] [place] [address] Gia Fernandez Encounter for dental examination (Primary Dx) 09/22/2024 9:40 AM EST Office Visit [address] [phone] Aishwarya Doe RN Onychomycosis (Primary [...] Description 12/08/2024 1:00 PM EDT Office Visit [address] [phone] Shantal Nieves PA-C [address] [place] [address] 12/29/2024 11:20 AM EDT Office Visit [address] [phone] Shantal Nieves PA-C [address] [place] [address] 02/23/2025 10:20 AM EDT Office Visit [address] [phone] Gia Fernandez [address] [place] [address] 06/01/2025 10:20 AM EDT Office Visit [address] [phone] Gia Fernandez [address] [place] [address] Health Maintenance Due Date Last Done Comments Dental FMX/Pano 1972 HPV Screening 1972 Pap + HPV 1972 Imm-DTaP/Tdap/Td (1 - Tdap) 12/10/1991 Imm-Hepatitis B (1 of 3 - 19+ 3-dose series) 12/10/1991 CT Colonography 2017 Colonoscopy 2017 Fecal DNA 2017 Flexible Sigmoidoscopy 2017 Cervical Cancer Screening 02/25/2021 Pap Smear 02/25/2021 02/25/2018 (Yadi ged by Outside Provider), 09/21/2014 Imm-Zoster, Recombinant (1 of 2) 2022 Colorectal Cancer Screening 05/19/2023 FIT/gFOBT 05/19/2023 05/19/2022 Breast Cancer Screening (Mammogram) 05/07/2024 05/07/2022, 02/23/2020 Alcohol and Drug Screen 09/14/2024 02/25/20 24, 04/15/2022, 05/08/2021, Additional history exists Depression Annual Screen 09/14/2024 02/25/2024 [id number] ( season) 2024 Postponed from 05/15/2024 (Patient postponement) Annual Preventive Care Visit 02/24/2025 02/25/2024, 04/15/2022, 05/08/2021, Additional history exists Diabetes Screening 02/24/2025 02/25/2024, 0 04/23/2022, 05/08/2021, Additional history exists Lipid Screening 02/24/2025 02/25/2024, 04/14, 05/08/2021, Additional history exists Imm-Influenza (#1) 2025 06/21/2018, 0 05/15/2017, 08/06/2016, Additional history exists Postponed from 05/15/2024 (Follow up visit) Tobacco Screening 11/24/2025 11/24/2024 Dental BW 11/26/2025 11/24/2024, 04/15, 10/22/2023, Additional history exists Dental Examination 11/26/2025 [...] Encounter for dental examination REFERRAL SCANNED DOCUMENT 11/24/2024 3:00 AM EDT REFERRAL SCANNED DOCUMENT 09/29/2024 3:00 AM EST [...] Health Maintenance Results * REFERRAL SCANNED DOCUMENT (11/24/2024 3:00 AM EDT) Only the most recent of2 resultswithin the time period is included. 11/24/2024 3:00 AM EDT us Shantal Nieves PA-C SCAN REFERRAL Final Result * LIPID PANEL (02/25/2024 2:12 PM EDT) CHOLESTEROL, TOTAL 154 <200 mg/dL [facility] HDL CHOLESTEROL 57 > OR = 50 mg/dL [facility] TRIGLYCERIDES 104 <150 mg/dL [facility] LDL-CHOLESTEROL 78 99 mg/dL (calc) [facility] Comment: Reference range: <100 Desirable range <100 mg/dL for primary prevention; ?? <70 mg/dL for patients with CHD or diabetic patients with > or = 2 CHD risk factors. LDL-C is now calculated using the Axel-Lorenzo calculation, which is a validated novel method providing better accuracy than the Friedewald equation in the estimation of LDL-C. Axel MEI et al. HIRAM. 2013;310(19): 3742-4320 (http://education.Canonical/faq/JLX275) CHOL/HDLC RATIO 2.7 <5.0 (calc) [facility] NON-HDL CHOLESTEROL 97 <130 mg/dL (calc) [facility] Comment: For patients with diabetes plus 1 major ASCVD risk factor, treating to a non-HDL-C goal of <100 mg/dL (LDL-C of <70 mg/dL) is considered a therapeutic option. Blood Blood / Unknown 02/25/2024 2 :12 PM EDT 02/25/2024 2:13 PM EDT Shantal Nieves PA-C LAB - BLOOD DRAW Final Resul t [facility] [address] [address], [facility] [address] [place] [address] * COMPREHENSIVE METABOLIC PANEL (02/25/2024 2:12 PM EDT) GLUCOSE 84 65 - 99 mg/dL [facility] Comment: ?Fasting reference interval UREA NITROGEN (BUN) 18 7 - 25 mg/dL [facility] CREATININE (blood) 0.80 0.50 - 1.03 mg/dL [facility] EGFR 89 > OR = 60 mL/min/1. 73m2 [facility] BUN/CREATININE RATIO SEE NOTE: [facility] Comment: ?? Not Reported: BUN and Creatinine are within ?? reference range. ? SODIUM 141 135 - 146 mmol/L [facility] POTASSIUM 4.1 3.5 - 5.3 mmol/L [facility] CHLORIDE 105 98 - 110 mmol/L [facility] CARBON DIOXIDE 29 20 - 32 mmol/L [facility] CALCIUM 9.3 8.6 - 10.4 mg/dL [facility] PROTEIN, TOTAL 7.1 6.1 - 8.1 g/dL [facility] ALBUMIN 4.2 3.6 - 5.1 g/dL [facility] GLOBULIN 2.9 1.9 - 3.7 g/dL (calc) [facility] ALBUMIN/GLOBULI N RATIO 1.4 1.0 - 2.5 (calc) [facility] BILIRUBIN, TOTAL 0.3 0.2 - 1.2 mg/dL [facility] ALKALINE PHOSPHATASE 62 37 - 153 U/L [facility] AST 16 10 - 35 U/L [facility] ALT 12 6 - 29 U/L [facility] Blood Blood / Unknown 02/25/2024 2 :12 PM EDT 02/25/2024 2:13 PM EDT Shantal Nieves PA-C LAB - BLOOD DRAW Edited Resu lt - Final Performing Organization Address City/[facility]/ZIP Co de Phone Number [facility] [address] [address], [facility] [address] [address] * FECAL GLOBIN BY IMMUNOCHEM (MEDICARE) (05/19/2022 8:00 PM EDT) FECAL GLOBIN BY IMMUNOCHEMISTRY See Note [facility] Comment: ??FECAL GLOBIN BY IMMUNOCHEMISTRY ?Micro Number: ?[id number] ??Test Status: ? Final ??Specimen Source: ?? Insure (tm) fobt test card ??Specimen Quality: ??Adequate ??Fecal Globin: ?Not Detected Stool Stool specimen / Unknown 05/19/2022 8:00 PM EDT 05/26/2022 4:40 AM EDT Shantal Nieves PA-C LAB - NO BLOOD DRAW Final Re sult [facility] [address] [address], [facility] [address] [address] * REFERRAL FOR MAMMOGRAM (05/07/2022 3:00 AM EDT) 05/07/2022 3:00 AM EDT Shantal Nieves PA-C IMG RFL MAMMO Edited Resul t - Final * HEPATITIS C AB W/RFLX HCV RNA, QT, RT PCR (04/15/2022 10:03 AM EDT) HEPATITIS C ANTIBODY NON-REACT SILVIA NON-REACT SILVIA [facility] SIGNAL TO CUT-OFF 0.18 <1.00 [facility] Comment: HCV antibody was non-reactive. There is no laboratory evidence of HCV infection. In most cases, no further action is required. However, if recent HCV exposure is suspected, a test for HCV RNA (test code 90695) is suggested. For additional information please refer to http://education.OncoPep/faq/QUR61n2 (This link is being provided for informational/ educational purposes only.) Blood Blood / Unknown 04/15/2022 1 0:03 AM EDT 04/15/2022 10:03 AM EDT Narrative [facility] - 04/16/2022 3:24 AM EDT FASTING:YES DIFFICULT DRAW. PATIENT ADVISED TO RETURN FOR COLLECTION. Shantal Nieves PA-C LAB - BLOOD DRAW Final Resul t Performing Organization Address City/[facility]/ZIP Co de Phone Number [facility] [address] [address], [facility] [address] [address] * HIV-1 & HIV-2 ANTIBODIES (10/18/2019 4:38 PM EST) [facility] HIV 1 AND 2 ANTIBODY SCREEN NEGATIVE NEGATIVE [facility] Comment: This assay is a 4th generation [...] PM EST 10/18/2019 4:39 PM EST Narrative [facility] - 10/18/2019 8:12 PM EST [email or web address], a member of [address] [address] Support Manager - Elisa Blanton [place] [id number] ORD# [id number] Shik[facility] LIN LAB - BLOOD DRAW Final Resu lt Performing Organization Address City/[facility]/ZIP Co de Phone Number [address] [address], from Last 3 Months or Most Recently Relevant to Health Maintenance Insurance [place] MED[place] [address] [employer] [place] [address] Care Teams Television Writer Relationship Specialty Start Date End Date Shantal Nieves PA-C [address] [place] [address] PCP - General FAMILY MEDICINE [place] 03/07/22
--- OUTSIDE RECORDS SUMMARY | 2024-12-01 13:00 | XMS_ITS | Encounter Summary ---
Author Organization [facility] Address [address] [place] [address] Care Team Providers Care Public Policy Analyst Name Role Phone Shantal Nieves PA-C Primary Care Provider [phone] Encounter Details Date Type Department Care Team (Late st Contact Info) Description 02/18/2022 Dental Interim Note Caring [facility] [address] [place] [phone] Ad[facility] [place] D[facility] [address] [place] [address] Social History Tobacco Use Types Packs/Day Years [...] Description 12/08/2024 1:00 PM EDT Office Visit [address] [phone] Shantal Nieves PA-C [address] [place] [address] 12/29/2024 11:20 AM EDT Office Visit [address] [phone] Shantal Nieves PA-C [address] [place] [address] 02/23/2025 10:20 AM EDT Office Visit [address] [phone] [address] [address] 06/01/2025 10:20 AM EDT Office Visit [address] [phone] Gia Fernandez [address] [place] [address] Scheduled Orders Name Type Priority Associated Diagnoses [...] on filedocumented in this encounter Care Teams Public Policy Analyst Relationship Specialty Start Date End Date Shantal Nieves PA-C [address] [place] [address] PCP - General FAMILY MEDICINEURBAN 03/07/22 documented as of this encounter
== END 2024-12-01 11:34 | disposition home or self-care (01) ==
LOC: HO.HOS 11:02
PROVIDERS: PCP Physician Assistant; Visit Provider Orthopaedic Surgery
DX: M17.11 Unilateral primary osteoarthritis, right knee (principal)
CPT/HCPCS: 20610

== ENCOUNTER → 2024-12-01 11:01 | Outpatient (BNVA) | payer MEDICAID, SELFPAY | PROVIDERS: PCP Physician Assistant; Visit Provider Orthopaedic Surgery | DX: M17.11 Unilateral primary osteoarthritis, right knee (principal) | CPT/HCPCS: 20610; J2003; J7323 ==

== ENCOUNTER 2024-12-08 09:32 | Outpatient (AMB) | payer MEDICAID, SELFPAY ==
--- NOTE | 2024-12-08 09:35 | MHC.OFFVIS ---
Vital Signs 12/08/24 09:36 Height 5 ft Weight 189 lb BMI 36.9 Intake Visit Reasons: Inj- Right knee Euflexxa #3 Intake Note: Danielle is a 53 year old female who presents today for her third dose of Euflexxa gel injection for her right knee. Patient reports she has notice improvement since her last dose? Allergies No Known Allergies Allergy (Verified 12/01/24 11:09) Medication List - Last Reconciled 12/08/24 by Rock Rangel MD amlodipine 5 mg PO DAILY aripiprazole 15 mg PO DAILY carbamazepine ER 300 mg PO BID diclofenac sodium 1% 2 - 4 grams topical BID ferrous gluconate 324 mg PO DAILY hydrocortisone 1% appl topical BID PFSH Social History (Updated 09/29/24 @ 13:25 by COURTNEY Norton) Current occupational status: disabled Current occupation: rt handed Assessment & Plan Assessment & Plan Orders: Orders AMB Joint Injection/Aspiration Today M17.11 - Unilateral primary osteoarthritis, right knee Coding
[2024-12-08 09:36] VITALS: BMI 36.9
--- NOTE | 2024-12-08 09:48 | MHC.OFFVIS ---
Vital Signs 12/08/24 09:36 Height 5 ft Weight 189 lb BMI 36.9 Intake Visit Reasons: Inj- Right knee Euflexxa #3 Intake Note: Danielle presents for follow-up of her right knee pain. She states that she has gotten mild relief from the 1st 2 Euflexxa injections. She continues with her home exercise program. Allergies No Known Allergies Allergy (Verified 12/01/24 11:09) Medication List - Last Reconciled 12/08/24 by Rock Rangel MD amlodipine 5 mg PO DAILY aripiprazole 15 mg PO DAILY carbamazepine ER 300 mg PO BID diclofenac sodium 1% 2 - 4 grams topical BID ferrous gluconate 324 mg PO DAILY hydrocortisone 1% appl topical BID PFSH Social History (Updated 09/29/24 @ 13:25 by COURTNEY Norton) Current occupational status: disabled Current occupation: rt handed Physical Exam Vital Signs: BMI result Body Mass Index 36.9 Extrem Other: Right knee examination shows a minimal effusion, mild crepitus with range of motion, no instability Office Procedures AMB Joint Injection/Aspiration Joint Injection/Aspiration Primary Site: right knee Prep: site was prepped using aseptic technique Injected: 20 mg of (Euflexxa viscosupplementation) and 1% plain lidocaine Procedure: The patient tolerated the procedure well Coding - Large joint Procedure code (CPT) selection complete Assessment & Plan Assessment & Plan (1) Osteoarthritis of right knee: Code(s): M17.11 - Unilateral primary osteoarthritis, right knee Category: Medical Plan Danielle presents with right knee pain due to osteoarthritis. The risks and benefits of a 3rd Euflexxa injection were discussed at length with the patient. The patient wished to proceed. She tolerated the injection well. She will continue with her home exercise program. She will contact me prior to her follow-up appointment in 3 months should any questions or concerns arise. Feel free to call me at any time should questions regarding her orthopedic management arise. Orders: Orders AMB Joint Injection/Aspiration Today M17.11 - Unilateral primary osteoarthritis, right knee Coding Level of Care Code Procedure Only Diagnoses Osteoarthritis of right knee M17.11 CPT Codes Coding - 62783 Large joint: 39107 - Large joint ([id number])
== END 2024-12-08 09:49 | disposition home or self-care (01) ==
LOC: HO.HOS 09:33
PROVIDERS: PCP Physician Assistant; Visit Provider Orthopaedic Surgery
DX: M17.11 Unilateral primary osteoarthritis, right knee (principal)
CPT/HCPCS: 20610

== ENCOUNTER → 2024-12-08 09:32 | Outpatient (BNVA) | payer MEDICAID, SELFPAY | PROVIDERS: PCP Physician Assistant; Visit Provider Orthopaedic Surgery | DX: M17.11 Unilateral primary osteoarthritis, right knee (principal) | CPT/HCPCS: 20610; J2003; J7323 ==

== ENCOUNTER 2025-03-09 09:37 | Outpatient (AMB) | payer MEDICAID, SELFPAY ==
[2025-03-09 09:39] VITALS: BMI 36.9
--- NOTE | 2025-03-09 09:39 | MHC.OFFVIS ---
Vital Signs 03/09/25 09:39 Height 5 ft Weight 189 lb BMI 36.9 Intake Visit Reasons: Right knee pain Intake Note: Danielle is a 54 year old female who presents with complaints of right knee pain. She describes her pain as sharp in nature. She has had cortisone injections in the past. The most recent cortisone injection gave her minimal relief. She has also had Euflexxa injections which gave her fairly good relief. She has tried Tylenol and anti-inflammatory medicines which gave her minimal relief. She has also done physical therapy exercises which aggravated her pain. She wishes to hold off on surgery if at all possible. Allergies No Known Allergies Allergy (Verified 03/09/25 09:40) Medication List - Last Reconciled 03/09/25 by Rock Rangel MD amlodipine 5 mg PO DAILY aripiprazole 15 mg PO DAILY carbamazepine ER 300 mg PO BID diclofenac sodium 1% 2 - 4 grams topical BID ferrous gluconate 324 mg PO DAILY hydrocortisone 1% appl topical BID PFSH Social History (Updated 09/29/24 @ 13:25 by COURTNEY Norton) Current occupational status: disabled Current occupation: rt handed Physical Exam Vital Signs: BMI result Body Mass Index 36.9 Const Other: Well-nourished well-developed very friendly female awake alert and oriented x3 in no acute distress Extrem Other: Right knee examination shows a minimal effusion, palpable crepitus with range of motion, pain with range of motion, no instability Results Reviewed Results Reviewed: X-rays of the patient's right knee taken previously show joint space narrowing, subchondral sclerosis, no acute bony abnormalities Assessment & Plan Assessment & Plan (1) Right knee pain: Code(s): M25.561 - Pain in right knee Category: Medical (2) Osteoarthritis of right knee: Code(s): M17.11 - Unilateral primary osteoarthritis, right knee Category: Medical Plan Ms. Ca presents with right knee pain due to osteoarthritis. I had a lengthy discussion with the patient regarding the treatment options. She wishes to hold off on surgery if at all possible. I agree with this plan. I will see if her insurance company will cover a another series of 3 Euflexxa injections. I will see her back once the injections are available. Feel free to call me at any time should questions regarding her orthopedic management arise. I spent 22 minutes in reviewing the patient's records and imaging studies, seeing the patient and documenting in the medical record. Coding Level of Care Code Est Pt Level 3 (87283) Complex EM visit Add On G2211 Diagnoses Right knee pain M25.561 Osteoarthritis of right knee M17.11
--- OUTSIDE RECORDS SUMMARY | 2025-03-09 10:42 | XMS_ITS | Encounter Summary ---
Author Organization [facility] Address [address] [place] [address] Care Team Providers Care Metallurgical Analyst Name Role Phone Shantal Nieves PA-C Primary Care Provider [phone] Encounter Details Date Type Department Care Team (Late st Contact Info) Description 02/18/2022 Dental Interim Note Caring [facility] [address] [place] [phone] Adair Denton DDS [address] [place] [address] Social History Tobacco Use Types Packs/Day Years [...] Care Team (Late st Contact Info) Description 06/01/2025 10:20 AM EDT Office Visit [address] [phone] [address] 08/31/2025 10:20 AM EST Office Visit [address] [phone] [address] Scheduled Orders Name Type Priority Associated Diagnoses Order Schedule 7,14,10 7,14,10 MAXILLARY PARTIAL DENTURE - RESIN BASE Dental Procedures Routine 1 Occurrences starting 10/22/2023 26,25,24,23,22,27 26,25,24,23,22,27 MANDIBULAR PARTIAL DENTURE - RESIN BASE [...] on filedocumented in this encounter Care Teams Metallurgical Analyst Relationship Specialty Start Date End Date Shantal Nieves PA-C [address] [place] [address] PCP - General FAMILY MEDICINE, [place] 03/07/22 documented as of this encounter
== END 2025-03-09 10:06 | disposition home or self-care (01) ==
LOC: HO.HOS 09:37
PROVIDERS: PCP Physician Assistant; Visit Provider Orthopaedic Surgery
DX: M25.561 Pain in right knee (principal); M17.11 Unilateral primary osteoarthritis, right knee
CPT/HCPCS: 99213

== ENCOUNTER → 2025-03-09 09:37 | Outpatient (BNVA) | payer MEDICAID, SELFPAY | PROVIDERS: PCP Physician Assistant; Visit Provider Orthopaedic Surgery | DX: M25.561 Pain in right knee (principal); M17.11 Unilateral primary osteoarthritis, right knee | CPT/HCPCS: 99212 ==

== ENCOUNTER 2025-07-06 11:00 | Outpatient (AMB) | payer MEDICAID, SELFPAY ==
--- NOTE | 2025-07-06 11:04 | MHC.OFFVIS ---
Vital Signs 07/06/25 11:09 Height 5 ft Weight 189 lb BMI 36.9 Intake Visit Reasons: INJ- Euflexxa #1 Right knee Intake Note: Danielle is a 54 year old female who presents with complaints of right knee pain. She describes her pain as sharp in nature. She has had Euflexxa injections in the past which gave her fairly good relief. She wishes to hold off on surgery if at all possible. She has failed the last 3 months of conservative treatment. Allergies No Known Allergies Allergy (Verified 07/06/25 11:04) Medication List - Last Reconciled 07/06/25 by Rock Rangel MD amlodipine 5 mg PO DAILY aripiprazole 15 mg PO DAILY carbamazepine ER 300 mg PO BID diclofenac sodium 1% 2 - 4 grams topical BID ferrous gluconate 324 mg PO DAILY hydrocortisone 1% appl topical BID PFSH Social History Current occupational status: disabled Current occupation: rt handed Physical Exam Vital Signs: BMI result Body Mass Index 36.9 Const Other: Well-nourished well-developed very friendly female awake alert and oriented x3 in no acute distress Extrem Other: Right knee examination shows a minimal effusion, palpable crepitus with range of motion, pain with range of motion, no instability Office Procedures AMB Joint Injection/Aspiration Joint Injection/Aspiration Primary Site: right knee Prep: site was prepped using aseptic technique Injected: 20 mg of (Euflexxa viscosupplementation), with 4 mL of and 1% plain lidocaine Procedure: The patient tolerated the procedure well Coding 88088 - Large joint Procedure code (CPT) selection complete Results Reviewed Results Reviewed: X-rays of the patient's right knee taken previously show joint space narrowing, subchondral sclerosis, no acute bony abnormalities Assessment & Plan Assessment & Plan (1) Osteoarthritis of right knee: Code(s): M17.11 - Unilateral primary osteoarthritis, right knee Category: Medical Plan Ms. Ca presents with right knee pain due to osteoarthritis. The risks and benefits of her 1st Euflexxa injection were discussed at length with the patient. The patient wished to proceed. She tolerated the injection well. She will continue with her home exercise program. She will follow up next week as scheduled. Feel free to call me at any time should questions regarding her orthopedic management arise. I spent 22 minutes in reviewing the patient's records and imaging studies, seeing the patient and documenting in the medical record. Orders: Orders AMB Joint Injection/Aspiration Today M17.11 - Unilateral primary osteoarthritis, right knee Coding Level of Care Code Est Pt Level 3 (50139) Complex EM visit Add On G2211 Diagnoses Osteoarthritis of right knee M17.11 CPT Codes Coding - 11242 Large joint: 84792 - Large joint ([id number])
[2025-07-06 11:09] VITALS: BMI 36.9
== END 2025-07-06 11:19 | disposition home or self-care (01) ==
LOC: HO.HOS 11:01
PROVIDERS: PCP Physician Assistant; Visit Provider Orthopaedic Surgery
DX: M17.11 Unilateral primary osteoarthritis, right knee (principal)
CPT/HCPCS: 20610

== ENCOUNTER → 2025-07-06 11:00 | Outpatient (BNVA) | payer MEDICAID, SELFPAY | PROVIDERS: PCP Physician Assistant; Visit Provider Orthopaedic Surgery | DX: M17.11 Unilateral primary osteoarthritis, right knee (principal) | CPT/HCPCS: 20610; J2003; J7323 ==

== ENCOUNTER 2025-07-13 08:53 | Outpatient (AMB) | payer MEDICAID, SELFPAY ==
--- NOTE | 2025-07-13 08:54 | MHC.OFFVIS ---
Intake Visit Reasons: INJ- Euflexxa #2 Right Knee Intake Note: Danielle is a 54 year old female who presents today in office for a follow up visit for her osteoarthritis of right knee. She presents today a right knee Euflexxa injection, #2. The patient states that she has gotten mild relief from the 1st injection. She continues with her home exercise program. Allergies No Known Allergies Allergy (Verified 07/13/25 09:00) Medication List - Last Reconciled 07/13/25 by Rock Rangel MD amlodipine 5 mg PO DAILY aripiprazole 15 mg PO DAILY carbamazepine ER 300 mg PO BID diclofenac sodium 1% 2 - 4 grams topical BID ferrous gluconate 324 mg PO DAILY hydrocortisone 1% appl topical BID PFSH Medical History Tear of medial meniscus of right knee Osteoarthritis of right knee Social History Current occupational status: disabled Current occupation: rt handed Physical Exam Extrem Other: Right knee examination shows a minimal effusion, palpable crepitus with range of motion, pain with range of motion, no instability Office Procedures AMB Joint Injection/Aspiration Joint Injection/Aspiration Primary Site: right knee Prep: site was prepped using aseptic technique Injected: 20 mg of (Euflexxa viscosupplementation), with 4 mL of and 1% plain lidocaine Procedure: The patient tolerated the procedure well Coding 70423 - Large joint Procedure code (CPT) selection complete Assessment & Plan Assessment & Plan (1) Osteoarthritis of right knee: Code(s): M17.11 - Unilateral primary osteoarthritis, right knee Category: Medical Plan Ms. Ca presents with right knee pain due to osteoarthritis. The risks and benefits of a 2nd Euflexxa injection were discussed at length with the patient. The patient wished to proceed. She tolerated the injection well. She will continue with her home exercise program. She will follow up next week as scheduled. Feel free to call me at any time should questions regarding her orthopedic management arise. Orders: Orders AMB Joint Injection/Aspiration Today M17.11 - Unilateral primary osteoarthritis, right knee Coding Level of Care Code Procedure Only Diagnoses Osteoarthritis of right knee M17.11 CPT Codes Coding - 65606 Large joint: 27459 - Large joint ([id number])
--- OUTSIDE RECORDS SUMMARY | 2025-07-13 09:53 | XMS_ITS | Clinical Summary ---
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 Phone Unavailable Primary Care Provider Unavailabl e Social History Tobacco Use Types Packs/Day Years Used Date Smoking Tobacco: Never Assessed Comments Unknown Sex and Gender Information Value Date Recorded Sex Assigned at Not on file Legal Sex Female 9:21 PM EDT Gender Identity Not on file Sexual Orientation Not on file Plan of Treatment Health Maintenance Due Date Last Done Comments CT Colonography 1972 Colonoscopy 1972 Depression Screening 1972 FIT DNA/Cologuard 1972 FOBT 1972 Lipid Panel 1972 SDOH Screening 1972 Sigmoidoscopy 1972 Disability Screening 1972 Alcohol/Substance Use Screening 1984 Tobacco Screening 1984 Family Planning (PISQ) 12/10/1987 Hepatitis C Screening 1990 DTaP/Tdap/Td Vaccines (1 - Tdap) 12/10/1991 Hepatitis B Vaccines (1 of 3 - 19+ 3-dose series) 12/10/1991 Pap Smear 1993 Cervical Cancer Screening 2002 HPV/Cotest 2002 Mammogram 2012 Pneumococcal Vaccine: 50+ Years (1 of 1 - PCV) 2022 Zoster Vaccines (1 of 2) 2022 Colorectal Cancer Screening 05/19/2023 FIT 05/19/2023 05/19/2022 COVID-19 Vaccine (1 - season) 2025 Influenza Vaccine (#1) 2025 8, 05/15/2017, 08/06/2016, Additional history exists RSV Patients and Patients Aged 60 years or older (1 - 1-dose 75+ series) 12/10/2047 HIV Screening Completed 10/18/2019 HIB Vaccines Aged Out No longer eligi ble based on patient's age to complete this topic HPV Vaccines Aged Out No longer eligi ble based on patient's age to complete this topic Hepatitis A Vaccines Aged Out No long er eligible based on patient's age to complete this topic IPV Vaccines Aged Out No longer eligi ble based on patient's age to complete this topic Meningococcal B Vaccine Aged Out No l onger eligible based on patient's age to complete this topic Meningococcal Vaccine Aged Out No isabelle radha eligible based on patient's age to complete this topic RSV under 20 months Aged Out No longe r eligible based on patient's age to complete this topic Rotavirus Vaccines Aged Out No longer eligible based on patient's age to complete this topic
== END 2025-07-13 09:10 | disposition home or self-care (01) ==
LOC: HO.HOS 08:53
PROVIDERS: PCP Physician Assistant; Visit Provider Orthopaedic Surgery
DX: M17.11 Unilateral primary osteoarthritis, right knee (principal)
CPT/HCPCS: 20610

== ENCOUNTER → 2025-07-13 08:53 | Outpatient (BNVA) | payer MEDICAID, SELFPAY | PROVIDERS: PCP Physician Assistant; Visit Provider Orthopaedic Surgery | DX: M17.11 Unilateral primary osteoarthritis, right knee (principal) | CPT/HCPCS: 20610; J2003; J7323 ==

== ENCOUNTER 2025-07-20 10:34 | Outpatient (AMB) | payer MEDICAID, SELFPAY ==
[2025-07-20 10:45] VITALS: BMI 36.9
--- NOTE | 2025-07-20 10:45 | MHC.OFFVIS ---
Vital Signs 07/20/25 10:45 Height 5 ft Weight 189 lb BMI 36.9 Intake Visit Reasons: INJ- Euflexxa INJ #3 Right knee Intake Note: Danielle is a 54 year old female who presents today in office for a follow up visit for her osteoarthritis of right knee. She presents today a right knee Euflexxa injection, #3. She states that she has gotten mild relief from the 1st 2 injections. She continues with her home exercise program. Allergies No Known Allergies Allergy (Verified 07/20/25 10:51) Medication List - Last Reconciled 07/20/25 by Rock Rangel MD amlodipine 5 mg PO DAILY aripiprazole 15 mg PO DAILY carbamazepine ER 300 mg PO BID diclofenac sodium 1% 2 - 4 grams topical BID ferrous gluconate 324 mg PO DAILY hydrocortisone 1% appl topical BID PFSH Medical History Tear of medial meniscus of right knee Osteoarthritis of right knee Social History Current occupational status: disabled Current occupation: rt handed Physical Exam Vital Signs: BMI result Body Mass Index 36.9 Extrem Other: Right knee examination shows a minimal effusion, palpable crepitus with range of motion, pain with range of motion, no instability Office Procedures AMB Joint Injection/Aspiration Joint Injection/Aspiration Primary Site: right knee Prep: site was prepped using aseptic technique Injected: 20 mg of (Euflexxa viscosupplementation), with 4 mL of and 1% plain lidocaine Procedure: The patient tolerated the procedure well Coding 69755 - Large joint Procedure code (CPT) selection complete Assessment & Plan Assessment & Plan (1) Osteoarthritis of right knee: Code(s): M17.11 - Unilateral primary osteoarthritis, right knee Category: Medical Plan Ms. Ca presents with right knee pain due to osteoarthritis. The risks and benefits of a 3rd Euflexxa injection were discussed at length with the patient. The patient wished to proceed. She tolerated the injection well. She will continue with her home exercise program. She will contact me prior to her follow-up appointment in 6 months should any questions or concerns arise. Feel free to call me at any time should questions regarding her orthopedic management arise. Orders: Orders AMB Joint Injection/Aspiration Today M17.11 - Unilateral primary osteoarthritis, right knee Coding Level of Care Code Procedure Only Diagnoses Osteoarthritis of right knee M17.11 CPT Codes Coding - 15472 Large joint: 34726 - Large joint ([id number])
--- OUTSIDE RECORDS SUMMARY | 2025-07-20 12:35 | XMS_ITS | Clinical Summary ---
Author Organization [employer] Address [address] [facility] [address] [place] [address] Care Team Providers Care Web Services Professional Name Role Phone Unavailable Primary Care Provider [...]
== END 2025-07-20 11:09 | disposition home or self-care (01) ==
LOC: HO.HOS 10:34
PROVIDERS: PCP Physician Assistant; Visit Provider Orthopaedic Surgery
DX: M17.11 Unilateral primary osteoarthritis, right knee (principal)
CPT/HCPCS: 20610

== ENCOUNTER → 2025-07-20 10:34 | Outpatient (BNVA) | payer MEDICAID, SELFPAY | PROVIDERS: PCP Physician Assistant; Visit Provider Orthopaedic Surgery | DX: M17.11 Unilateral primary osteoarthritis, right knee (principal) | CPT/HCPCS: 20610; J2003; J7323 ==